=== PATIENT | male | born 1995 | race Two or more races ===

== ENCOUNTER 2021-06-11 21:57 | Emergency (ER) | payer MEDICAID ==
[~2021-06-11] VITALS: Ht 180.3 cm; Wt 93.0 kg
--- NOTE | 2021-06-11 22:40 | NUR ---
BIB [facility] from home for c/o meth abuse, has psych hx but denies any SI/HI, or any A/V hallucinations at triage. No SOB or labored breathing, afebrile. Denies CP/pressure. Clear speech, complete sentences.
--- NOTE | 2021-06-11 22:41 | NUR ---
Dr. Shore at bedside, MSE in progress.
[2021-06-11] MEDS ORDERED: diphenhydrAMINE 50 MG CAPSULE PO ONE (22:45)
[2021-06-11] MEDS ORDERED: LORAZEPAM 0.5 MG TABLET PO ONE (22:45)
[2021-06-11 22:55] LABS: HEMATOCRIT 42.8 % (36.7-47.1); MEAN CORPUSCULAR HEMOGLOBIN 29.3 uug (23.8-33.4); MEAN CORPUSCULAR VOLUME 86.9 fL (73.0-96.2); PLATELET COUNT (AUTO) 211 K/uL (152-348)
[2021-06-11] MEDS ORDERED: diphenhydrAMINE 50 MG CAPSULE ONE (22:59)
[2021-06-11] MEDS ORDERED: LORAZEPAM 1 MG TABLET ONE (22:59)
[2021-06-11 23:08] LABS: POTASSIUM 3.6 mmol/L (3.5-5.1)
[2021-06-11 23:14] LABS: BILIRUBIN,TOTAL 0.3 mg/dL (0.2-1.0); TOTAL PROTEIN, SERUM 8.2 g/dL (6.4-8.2)
--- NOTE | 2021-06-12 00:19 | NUR ---
Patient discharged to home in stable condition. A/O x3, no SOB or labored breathing. Afebrile. GCS 15. Clear speech, complete sentences. Steady gait.Denies any pain/discomfort. Written and verbal after care instructions given. Patient verbalizes understanding of instructions. Stressed follow up or return to ER for worsening s/s.
[2021-06-12 00:20] VITALS: BP 136/92
== END 2021-06-12 00:18 | disposition home or self-care (01) ==
LOC: ER 21:59
DX: F15.10 Other stimulant abuse, uncomplicated (principal); F20.9 Schizophrenia, unspecified; R00.0 Tachycardia, unspecified; R03.0 Elevated blood-pressure reading, without diagnosis of hypertension
CPT/HCPCS: 36415; 80053; 82550; 84484; 85025; 99284; Q0163; 70030-TC; A4663

== ENCOUNTER 2021-09-25 12:31 | Emergency (ER) | payer MEDICAID ==
[~2021-09-25] VITALS: Ht 180.3 cm; Wt 90.7 kg
--- NOTE | 2021-09-25 12:49 | NUR ---
Patient discharged to home in stable condition. Written and verbal after care instructions given. Patient verbalizes understanding of instructions. Stressed follow up or return to ER for worsening s/s.
[2021-09-25] MEDS: TDAP DIPH,PERTUSS,TET VAC/PF 0.5 ML DISP.SYRIN IM ONE (12:58)
[2021-09-25] MEDS ORDERED: TDAP DIPH,PERTUSS,TET VAC/PF 0.5 ML DISP.SYRIN IM ONE (13:00)
== END 2021-09-25 12:58 | disposition home or self-care (01) ==
LOC: ER 12:31
DX: S80.211A Abrasion, right knee, initial encounter (principal); V00.131A Fall from skateboard, initial encounter; Y93.51 Activity, roller skating (inline) and skateboarding; Y92.89 Other specified places as the place of occurrence of the external cause
CPT/HCPCS: 90715; A4663